=== PATIENT | female | born 1970 | race Caucasian/White ===

== ENCOUNTER → 2024-04-22 13:54 | Outpatient (REF) | payer BC, SELFPAY | LOC: WDC 13:54 | PROVIDERS: ATTENDING PHYSICIAN Nurse Practitioner Adult Health | DX: R92.8 Other abnormal and inconclusive findings on diagnostic imaging of breast (principal) | CPT/HCPCS: 77061; 77065 ==

== ENCOUNTER → 2024-09-23 10:34 | Outpatient (REF) | payer BC, SELFPAY | LOC: WDC 10:34 | PROVIDERS: ATTENDING PHYSICIAN Nurse Practitioner Adult Health; FAMILY PHYSICIAN Physician Assistant Medical | DX: Z12.31 Encounter for screening mammogram for malignant neoplasm of breast (principal) | CPT/HCPCS: 77063; 77067 ==